=== PATIENT | female | born 1985 | race Two or more races ===

== ENCOUNTER 2017-12-19 15:25 | Emergency (ER) | payer OTHER ==
[2017-12-19 16:28] LABS: AMORPHOUS SEDIMENT,URINE TRACE /HPF; APPEARANCE,URINE SLIGHTLY-CLOUDY; BILIRUBIN,URINE NEGATIVE (NEGATIVE); COLOR,URINE STRAW; GLUCOSE, URINE NEGATIVE (NEGATIVE); KETONES,URINE NEGATIVE (NEGATIVE); LEUKOCYTE ESTERASE,URINE LARGE (NEGATIVE); NITRITE,URINE NEGATIVE (NEGATIVE); PROTEIN,URINE NEGATIVE (NEGATIVE); URINE SPECIFIC GRAVITY 1.011; UROBILINOGEN,URINE NEGATIVE mg/dL (<2.0)
--- NOTE | 2017-12-19 16:33 | ER Document Report ---
ED General - General Mode of Arrival: Ambulatory Information source: Patient TRAVEL OUTSIDE OF THE [place] IN LAST 30 DAYS: No - General Chief Complaint: Flank Pain Stated Complaint: FLANK PAIN Time Seen by Provider: 12/19/17 16:20 Notes: 32 y.o female presents the ED with dysuria of onset one week and bilateral flank pain and pelvic discomfort of onset yesterday. Pt denies any fever, nausea , vomiting, diarrhea or blood in stool. (BRIGIDA FORREST) - Related Data Allergies/Adverse Reactions: iodine Allergy (Verified 12/19/17 16:19) naproxen Allergy (Verified 12/19/17 16:19) Past Medical History - General Information source: Patient - Social History Smoking Status: Never Smoker Frequency of alcohol use: Occasional Drug Abuse: None Family History: Reviewed & Not Pertinent Patient has suicidal ideation: No Patient has homicidal ideation: No Renal/ Medical History: Denies: Hx Peritoneal Dialysis Review of Systems - Review of Systems Constitutional: denies: Fever EENT: No symptoms reported Cardiovascular: No symptoms reported Respiratory: No symptoms reported Gastrointestinal: See HPI, Abdominal pain - Pelvic pain. denies: Diarrhea, Nausea, Vomiting Genitourinary: See HPI, Dysuria, Other - Bilateral flank pain Female Genitourinary: No symptoms reported Musculoskeletal: No symptoms reported Skin: No symptoms reported Hematologic/Lymphatic: No symptoms reported Neurological/Psychological: No symptoms reported -: Yes All other systems reviewed and negative Physical Exam - General General appearance: Appears well, Alert In distress: None - Respiratory Respiratory status: No respiratory distress Chest status: Nontender Breath sounds: Normal Chest palpation: Normal - Cardiovascular Rhythm: Regular Heart sounds: Normal auscultation Murmur: No - Abdominal Inspection: Normal Distension: No distension - Back Back: CVA tenderness - Bilateral CVA tenderness - Extremities General upper extremity: Normal inspection, Normal ROM General lower extremity: Normal inspection, Normal ROM - Neurological Neuro grossly intact: Yes Cognition: Normal Orientation: AAOx4 - Psychological Associated symptoms: Normal affect, Normal mood - Skin Skin Temperature: Warm Skin Moisture: Dry Skin Color: Normal - Vital signs Vitals: Temp Pulse Resp BP Pulse Ox 98.9 F 87 16 126/76 H 97 12/19/17 15:48 12/19/17 15:48 12/19/17 15:48 12/19/17 15:48 12/19/17 15:48 Course - Re-evaluation Re-evalutation: 12/19/17 16:46 Patient afebrile with normal vitals test is negative. Urinalysis shows signs of infection. Will provide antibiotics with return precautions regarding urinary tract infection. (GWEN BURGESS) - Vital Signs Vital signs: Temp Pulse Resp BP Pulse Ox 98.6 F 80 16 132/83 H 100 12/19/17 17:06 12/19/17 17:06 12/19/17 17:06 12/19/17 17:06 12/19/17 17:06 - Laboratory Laboratory results interpreted by me: 12/19/17 15:50 Ur Leukocyte Esterase LARGE H Discharge - Discharge Clinical Impression: Urinary tract infection Qualifiers: Urinary tract infection type: site unspecified Hematuria presence: with hematuria Qualified Code(s): N39.0 - Urinary tract infection, site not specified Condition: Good Disposition: HOME, SELF-CARE Instructions: Urinary Tract Infection ([facility]) Prescriptions: Levofloxacin [Levaquin 750 mg Tablet] 750 mg PO DAILY #5 tablet Referrals: PIPO DEL REAL [Primary Care Provider] - Follow up as needed Scribe Attestation: 12/20/17 23:13 I personally performed the services described documentation, reviewed and edited the documentation which was dictated to describe my presence, and it accurately records my words and actions. (GWEN BURGESS) Scribe Documentation - Scribe Written by Scribe:: Brigida Forrest, Aide 12/19/17 [id number] acting as scribe for :: Piotr
[2017-12-19 17:08] VITALS: BP 132/83
[2017-12-19] MEDS ORDERED: HYDROCODONE/ACETAMINOPHEN 5-325 MG (6 TAB/ER DISP) PO PRN (17:33)
== END 2017-12-19 17:08 | disposition home or self-care (01) ==
LOC: ER 15:25
DX: N39.0 Urinary tract infection, site not specified (principal); R10.9 Unspecified abdominal pain; R30.0 Dysuria
CPT/HCPCS: 81001; 81025; 99284

== ENCOUNTER 2018-03-16 15:14 | Emergency (ER) | payer OTHER ==
[2018-03-16 15:19] VITALS: BP 117/70
--- NOTE | 2018-03-16 17:40 | ER Document Report ---
ED General - General Chief Complaint: Chest Congestion Stated Complaint: SORE THROAT, CONGESTION, COUGH Time Seen by Provider: 03/16/18 16:52 TRAVEL OUTSIDE OF THE [place] IN LAST 30 DAYS: No - HPI Notes: 32-year-old female presents emergency department for evaluation of sore throat, cough, congestion, and tactile fever that started yesterday. She denies any productive cough or hemoptysis. She denies any sensation of throat closing or difficulty breathing. Denies any shortness of breath or wheezing. Patient also reports that she has dysuria without hematuria. She reports suprapubic abdominal pain which is consistent with her past UTIs. She denies any back pain. Denies any vaginal discharge or bleeding. So denies any rashes, chest pain, nausea, vomiting, or diarrhea. - Related Data Allergies/Adverse Reactions: iodine Allergy (Verified 12/19/17 16:19) naproxen Allergy (Verified 12/19/17 16:19) Past Medical History - General Information source: Patient - Social History Smoking Status: Never Smoker Chew tobacco use (# tins/day): No Frequency of alcohol use: None Family History: Reviewed & Not Pertinent Patient has suicidal ideation: No Patient has homicidal ideation: No Renal/ Medical History: Denies: Hx Peritoneal Dialysis Review of Systems - Review of Systems -: Yes All other systems reviewed and negative Physical Exam - Vital signs Vitals: Temp Pulse Resp BP Pulse Ox 98.9 F 80 18 117/70 98 03/16/18 15:18 03/16/18 15:18 03/16/18 15:18 03/16/18 15:18 03/16/18 15:18 - Notes Notes: PHYSICAL EXAMINATION: GENERAL: Well-appearing, well-nourished and in no acute distress. HEAD: Atraumatic, normocephalic. EYES: Pupils equal round and reactive to light, extraocular movements intact, sclera anicteric, conjunctiva are normal. ENT: Nares patent with mild turbinate swelling bilaterally, oropharynx clear with mild posterior erythema and no exudates. Bilateral tonsils with no swelling, erythema, or exudates. Uvula midline. No trismus. No abscess. Moist mucous membranes. NECK: Normal range of motion, supple without lymphadenopathy LUNGS: Breath sounds clear to auscultation bilaterally and equal. No wheezes rales or rhonchi. HEART: Regular rate and rhythm without murmurs ABDOMEN: Soft, mild suprapubic tenderness with no guarding, rigidity, rebound tenderness, or peritoneal signs. Nondistended abdomen. No masses appreciated. BACK: No midline or focal bony tenderness. No CVA tenderness NEUROLOGICAL: Normal gait, balance, speech, facial symmetry PSYCH: Normal mood, normal affect. SKIN: Warm, Dry, normal turgor, no rashes or lesions noted. Course - Re-evaluation Re-evalutation: 03/16/18 17:57 Consistent with upper respiratory infection and UTI. See urinalysis. No evidence of pneumonia, strep pharyngitis, [employer] COORDINATOR, PE, pyelonephritis, or life- threatening illness. She was nontoxic or septic appearing in no acute or respiratory distress. Patient was afebrile not hypoxic. The likelihood of other entities in the differential is insufficient to justify any further testing for them I discussed care plan at length with patient. Any and all questions were answered. Discharged home with Macrobid, prednisone, albuterol inhaler, Motrin, and Robitussin-AC. She reports that she has throat lozenges at home. Advised patient to follow-up with her primary care provider and take medications as instructed. I also advised her to return immediately to the emergency department for any new, worsening, or concerning symptoms as discussed. She understands and agrees with plan. 03/16/18 18:12 03/16/18 18:16 - Vital Signs Vital signs: Temp Pulse Resp BP Pulse Ox 98.9 F 80 18 117/70 98 03/16/18 15:18 03/16/18 15:18 03/16/18 15:18 03/16/18 15:18 03/16/18 15:18 - Laboratory Laboratory results interpreted by me: 03/16/18 17:28 Ur Leukocyte Esterase MODERATE H Urine Ascorbic Acid 20 H Discharge - Discharge Clinical Impression: Upper respiratory infection Qualifiers: URI type: unspecified viral URI Qualified Code(s): J06.9 - Acute upper respiratory infection, unspecified UTI (urinary tract infection) Qualifiers: Urinary tract infection type: acute cystitis Hematuria presence: without hematuria Qualified Code(s): N30.00 - Acute cystitis without hematuria Condition: Good Instructions: Upper Respiratory Illness ([facility]), Urinary Tract Infection ([facility]) Additional Instructions: Please follow-up with your primary care provider and take medications as instructed. Return immediately to the emergency department for any new, worsening, or concerning symptoms as discussed. Prescriptions: Codeine Phosphate/Guaifenesin [Cheratussin AC Syrup] 10 ml PO Q4HP PRN #120 liquid PRN Reason: Albuterol Sulfate [Proair HFA] 1 - 2 puff IH Q4 PRN #1 inhaler PRN Reason: Ibuprofen [Motrin 800 mg Tablet] 800 mg PO Q8H PRN #30 tab PRN Reason: Nitrofurantoin Monohyd/M-Cryst [Macrobid 100 mg Capsule] 100 mg PO BID #10 capsule Prednisone 60 mg PO DAILY #15 tablet Referrals: PIPO DEL REAL [Primary Care Provider] - Follow up as needed
[2018-03-16 17:50] LABS: APPEARANCE,URINE SLIGHTLY-CLOUDY; BILIRUBIN,URINE NEGATIVE (NEGATIVE); COLOR,URINE YELLOW; GLUCOSE, URINE NEGATIVE (NEGATIVE); KETONES,URINE NEGATIVE (NEGATIVE); LEUKOCYTE ESTERASE,URINE MODERATE (NEGATIVE); NITRITE,URINE NEGATIVE (NEGATIVE); PROTEIN,URINE NEGATIVE (NEGATIVE); URINE SPECIFIC GRAVITY 1.012; UROBILINOGEN,URINE NEGATIVE mg/dL (<2.0)
== END 2018-03-16 17:45 | disposition home or self-care (01) ==
LOC: ER 15:14
DX: J06.9 Acute upper respiratory infection, unspecified (principal); N30.00 Acute cystitis without hematuria; R09.89 Other specified symptoms and signs involving the circulatory and respiratory systems; J02.9 Acute pharyngitis, unspecified; R05 Cough; R50.9 Fever, unspecified
CPT/HCPCS: 81001; 81025; 87086; 99283